=== PATIENT | male | born 1960 | race Caucasian/White ===

== ENCOUNTER 2017-01-27 11:57 | Emergency (ER) | payer MEDICAID ==
--- NOTE | 2017-01-27 12:08 | ER Document Report ---
ED Medical Screen (RME) - General Stated Complaint: TROUBLE SWALLOWING Mode of Arrival: Ambulatory Information source: Patient Notes: PT presents to the ED with c/o trouble swallowing for 3 days. Not able to eat/ drink for past 3 days. Hx of esophageal cancer, on chemo now. Radiation 3 months ago. Reports when he tries to swallow it gets stuck in his throat and has pain. Denies f//v. Reports throat feels like it is closing up when he drinks/eats. No problems now at rest. I have greeted and performed a rapid initial assessment of this patient. A comprehensive ED assessment and evaluation of the patient, analysis of test results and completion of the medical decision making process will be conducted by additional ED providers. TRAVEL OUTSIDE OF THE [place] IN LAST 30 DAYS: No - Related Data Allergies/Adverse Reactions: No Known Allergies Allergy (Verified 01/27/17 12:06) Past Medical History GI Medical History: Reports: Hx Gastroesophageal Reflux Disease - Immunizations Hx Diphtheria, Pertussis, Tetanus Vaccination: No
[2017-01-27 12:34] LABS: ABSOLUTE MONOCYTES (AUTO) 0.9 10^3/uL (0.1-1.4); ABSOLUTE NEUT (AUTO) 4.1 10^3/uL (1.7-8.2); BASOPHILS % (AUTO) 0.8 % (0-2); EOSINOPHILS % (AUTO) 0.7 % (0-6); HEMOGLOBIN 11.2 g/dL (13.5-17.0); HGB HCT DIFFERENCE 0.6; LYMPHOCYTES % (AUTO) 16.5 % (13-45); MEAN CORPUSCULAR HEMOGLOBIN 35.6 pg (27.0-33.4); MEAN CORPUSCULAR HGB CONC 33.9 g/dL (32.0-36.0); MEAN CORPUSCULAR VOLUME 105 fl (80-97); MONOCYTES % (AUTO) 14.3 % (3-13); RED BLOOD COUNT 3.14 10^6/uL (4.35-5.55); RED CELL DISTRIBUTION WIDTH 18.5 % (11.5-14.0); SEGMENTED NEUTROPHILS % (AUTO) 67.7 % (42-78); WHITE BLOOD COUNT 6.1 10^3/uL (4.0-10.5)
[2017-01-27 12:39] LABS: APPEARANCE,URINE CLEAR; BILIRUBIN,URINE NEGATIVE (NEGATIVE); GLUCOSE, URINE NEGATIVE (NEGATIVE); KETONES,URINE NEGATIVE (NEGATIVE); LEUKOCYTE ESTERASE,URINE NEGATIVE (NEGATIVE); NITRITE,URINE NEGATIVE (NEGATIVE); PROTEIN,URINE NEGATIVE (NEGATIVE); URINE SPECIFIC GRAVITY 1.016; UROBILINOGEN,URINE NEGATIVE mg/dL (<2.0)
[2017-01-27 12:49] LABS: ALANINE AMINOTRANSFERASE 29 U/L (21-72); ALBUMIN 3.8 g/dL (3.5-5.0); ALKALINE PHOSPHATASE 97 U/L (38-126); ANION GAP 13 (5-19); ASPARTATE AMINO TRANSFERASE 18 U/L (17-59); BILIRUBIN,TOTAL 0.9 mg/dL (0.2-1.3); BLOOD UREA NITROGEN 9 mg/dL (7-20); CALCIUM 9.6 mg/dL (8.4-10.2); CARBON DIOXIDE 25 mmol/L (22-30); CHLORIDE 103 mmol/L (98-107); CREATININE RESULT 0.48 mg/dL (0.52-1.25); GLUCOSE 89 mg/dL (75-110); POTASSIUM 3.6 mmol/L (3.6-5.0); SODIUM 141.3 mmol/L (137-145); TOTAL PROTEIN 6.8 g/dL (6.3-8.2)
--- NOTE | 2017-01-27 16:22 | ER Document Report ---
ED GI/ - General Chief Complaint: Difficulty Swallowing Stated Complaint: TROUBLE SWALLOWING Mode of Arrival: Ambulatory Notes: The patient is a 56-year-old male, past medical history esophageal cancer ( finished radiation, now on weekly Chemo), presents with 3 days of increasing pain when he swallows. The pain is worse with solids but is slightly present when he swallows liquids. He denies nausea, vomiting, foreign body sensation, throat swelling, rash, fevers or headache. TRAVEL OUTSIDE OF THE [place] IN LAST 30 DAYS: No - Related Data Allergies/Adverse Reactions: No Known Allergies Allergy (Verified 01/27/17 12:06) Past Medical History - General Information source: Patient - Social History Smoking Status: Current Every Day Smoker Chew tobacco use (# tins/day): No Frequency of alcohol use: None Drug Abuse: None Family History: None Patient has suicidal ideation: No Patient has homicidal ideation: No Renal/ Medical History: Denies: Hx Peritoneal Dialysis GI Medical History: Reports: Hx Gastroesophageal Reflux Disease - Immunizations Hx Diphtheria, Pertussis, Tetanus Vaccination: No Review of Systems - Review of Systems Notes: REVIEW OF SYSTEMS: CONSTITUTIONAL: -fevers, -chills EENT: -eye pain, +difficulty swallowing, -nasal congestion CARDIOVASCULAR: -chest pain, -syncope. RESPIRATORY: -cough, -SOB GASTROINTESTINAL: -abdominal pain, -nausea, -vomiting, -diarrhea GENITOURINARY: -dysuria, -hematuria MUSCULOSKELETAL: -back pain, -neck pain SKIN: -rash or skin lesions. HEMATOLOGIC: -easy bruising or bleeding. LYMPHATIC: -swollen, enlarged glands. NEUROLOGICAL: -altered mental status or loss of consciousness, -headache, - neurologic symptoms PSYCHIATRIC: -anxiety, -depression. ALL OTHER SYSTEMS REVIEWED AND NEGATIVE. Physical Exam - Vital signs Vitals: Temp Pulse Resp BP Pulse Ox 98.1 F 102 H 18 106/75 97 01/27/17 12:03 01/27/17 12:03 01/27/17 12:03 01/27/17 12:03 01/27/17 12:03 - Notes Notes: PHYSICAL EXAMINATION: GENERAL: No acute distress. HEAD: Atraumatic, normocephalic. EYES: Pupils equal round and reactive to light, extraocular movements intact, sclera anicteric, conjunctiva are normal. ENT: nares patent, oropharynx clear without exudates. Moist mucous membranes. NECK: No stridor. Normal range of motion, supple without lymphadenopathy LUNGS: Breath sounds clear to auscultation bilaterally and equal. No wheezes rales or rhonchi. HEART: Regular rate and rhythm without murmurs ABDOMEN: Soft, nontender, normoactive bowel sounds. No guarding, no rebound. No masses appreciated. EXTREMITIES: Normal range of motion, no pitting or edema. No cyanosis. NEUROLOGICAL: Cranial nerves grossly intact. Normal speech, normal gait. Normal sensory, motor, and reflex exams. PSYCH: Normal mood, normal affect. SKIN: Warm, Dry, normal turgor, no rashes or lesions noted. Course - Re-evaluation Re-evalutation: 01/27/17 16:28 Patient protecting his airway and able to swallow fluids. Labs and urine do not show that he is dehydrated. Spoke to Dr. Perez (his Oncologist) and recommends treating for Hortensia esophagitis. Also recommends a fentanyl patch to help out with the pain during swallowing and she will see him in his office in 2 days to schedule scans and EGD. Patient and are comfortable with plan. Given return precautions and he understands. - Vital Signs Vital signs: Temp Pulse Resp BP Pulse Ox 99.1 F 97 18 104/72 97 01/27/17 16:49 01/27/17 16:49 01/27/17 16:49 01/27/17 16:49 01/27/17 16:49 - Laboratory Result Diagrams: 01/27/17 12:20 01/27/17 12:20 Laboratory results interpreted by me: 01/27/17 01/27/17 12:20 12:20 RBC 3.14 L Hgb 11.2 L Hct 33.0 L MCV 105 H MCH 35.6 H RDW 18.5 H Plt Count 147 L Monocytes % 14.3 H Creatinine 0.48 L Discharge - Discharge Clinical Impression: Odynophagia Condition: Stable Disposition: HOME, SELF-CARE Additional Instructions: Take the Diflucan as prescribed. Use the fentanyl patch and follow-up with your oncologist as scheduled on Sunday. Make sure you're drinking plenty of fluids. Return to the ER if you are unable to drink. Esophagitis Your evaluation has resulted in a diagnosis of esophagitis. This is an inflammation of the lower esophagus due to stomach acid. It causes symptoms such as chest pain, heartburn, or food "sticking." This is common in persons with a hiatal hernia. Certain foods, alcohol, and aspirin contribute to esophagitis. Treatment depends on the severity. Usually, antacids or acid-suppressing medicines are used. The physician will often prescribe membrane-protective drugs (such as Carafate). Some patients benefit from medication that tightens the valve at the top of the stomach (such as Reglan). Avoid alcohol, aspirin, caffeine, tobacco, and foods that cause heartburn ( such as chocolate). Elevate the head of your bed about four inches. Call the doctor if you develop severe chest pain, inability to swallow fluids, fever, or worsening symptoms. Prescriptions: Fentanyl 1 each TD Q72H #1 patch.[id number] Fluconazole [Diflucan 40 mg/ml Susp] 100 mg PO DAILY 14 Days Referrals: ROSANNA PEREZ MD [Primary Care Provider] - Follow up as needed
[2017-01-27 16:50] VITALS: BP 104/72
== END 2017-01-27 16:49 | disposition home or self-care (01) ==
LOC: ER 11:57
DX: R13.10 Dysphagia, unspecified (principal); C15.9 Malignant neoplasm of esophagus, unspecified; F17.200 Nicotine dependence, unspecified, uncomplicated; Z79.899 Other long term (current) drug therapy
CPT/HCPCS: 36415; 80053; 81001; 85025; 99284

== ENCOUNTER → 2017-01-31 | Outpatient (CLI) | payer MEDICAID | LOC: RAD 08:36 | PROVIDERS: ATTEND Internal Medicine Medical Oncology | DX: C15.5 Malignant neoplasm of lower third of esophagus (principal); K74.60 Unspecified cirrhosis of liver | CPT/HCPCS: 71260; 74160 ==

== ENCOUNTER 2017-08-02 08:34 | Emergency (ER) | payer MEDICAID ==
[2017-08-02] MEDS ORDERED: NORMAL SALINE 1000 ML 1,000 ML IV ONE ×2 (09:20→11:11)
--- NOTE | 2017-08-02 09:22 | ER Document Report ---
ED Medical Screen (RME) - General Chief Complaint: Abdominal Pain Stated Complaint: ABDOMINAL PAIN Time Seen by Provider: 08/02/17 09:19 Mode of Arrival: Wheelchair Information source: Patient TRAVEL OUTSIDE OF THE [place] IN LAST 30 DAYS: No - HPI Patient complains to provider of: abd pain Onset: Other - pt. sent over from oncology outpt. as they are concerned with possible bowel blockage. Pt. states last BM 3 days ago - Related Data Allergies/Adverse Reactions: No Known Allergies Allergy (Verified 08/02/17 08:39) Past Medical History - Social History Chew tobacco use (# tins/day): No Frequency of alcohol use: None Drug Abuse: None Renal/ Medical History: Denies: Hx Peritoneal Dialysis GI Medical History: Reports: Hx Gastroesophageal Reflux Disease - Immunizations Hx Diphtheria, Pertussis, Tetanus Vaccination: No Physical Exam - Vital signs Vitals: Temp Pulse Resp BP Pulse Ox 97.9 F 120 H 20 102/70 97 08/02/17 08:37 08/02/17 08:37 08/02/17 08:37 08/02/17 08:37 08/02/17 08:37 Course - Vital Signs Vital signs: Temp Pulse Resp BP Pulse Ox 97.9 F 120 H 20 102/70 97 08/02/17 08:37 08/02/17 08:37 08/02/17 08:37 08/02/17 08:37 08/02/17 08:37
--- NOTE | 2017-08-02 09:35 | ER Document Report ---
ED GI/ - General Chief Complaint: Abdominal Pain Stated Complaint: ABDOMINAL PAIN Time Seen by Provider: 08/02/17 09:19 Mode of Arrival: Wheelchair Notes: Patient is a 57-year-old male who presents emergency department complaining of abdominal pain for the past day and a half. Patient states that he was fine up until yesterday when he had diffuse abdominal pain with associated bloating, nausea and hiccups. Patient states that he started throwing up last evening he has not been able to tolerate anything p.o. States his last bowel movement was 3-1/2 days ago. Patient denies any diarrhea. Denies any hematemesis. Past medical history significant for esophageal cancer stage III. Patient [facility] was not completed due to concerns for metastatic disease involving the left pleura and diaphragm. Patient has since been undergoing chemo with Dr. Quesada in [place]. Last PET scan was in March of this year and has not had a repeat imaging since his procedure. Otherwise denies any headache, shortness of breath, chest pain, difficulty breathing. Past medical history significant for cirrhosis secondary to history of alcohol abuse, esophageal cancer. Otherwise healthy male. Past surgical history significant for ex lap and PEG tube placement of April 20 of this year Social history significant for current tobacco user, history of alcohol abuse. TRAVEL OUTSIDE OF THE [place] IN LAST 30 DAYS: No - Related Data Allergies/Adverse Reactions: No Known Allergies Allergy (Verified 08/02/17 08:39) Past Medical History - General Information source: Patient - Social History Smoking Status: Current Every Day Smoker Chew tobacco use (# tins/day): No Frequency of alcohol use: None Drug Abuse: None Family History: None Renal/ Medical History: Denies: Hx Peritoneal Dialysis GI Medical History: Reports: Hx Gastroesophageal Reflux Disease - Immunizations Hx Diphtheria, Pertussis, Tetanus Vaccination: No Review of Systems - Review of Systems Notes: REVIEW OF SYSTEMS: CONSTITUTIONAL : Denies fever, chills, or sweats. Denies recent illness. EENT: Denies eye, ear, throat, or mouth pain or symptoms. Denies nasal or sinus congestion or discharge. Denies throat, tongue, or mouth swelling or difficulty swallowing. CARDIOVASCULAR: Denies chest pain. Denies palpitations or racing or irregular heart beat. Denies ankle edema. RESPIRATORY: Denies cough, cold, or chest congestion. Denies shortness of breath, difficulty breathing, or wheezing. GASTROINTESTINAL: See HPI GENITOURINARY: Denies difficulty urinating, painful urination, burning, frequency, blood in urine, or discharge. FEMALE GENITOURINARY: Denies vaginal bleeding, heavy or abnormal periods, irregular periods. Denies vaginal discharge or odor. MUSCULOSKELETAL: Denies any muscle spasms, difficulty walking, extremity pain SKIN: Denies rash, lesions or sores. HEMATOLOGIC : Denies easy bruising or bleeding. LYMPHATIC: Denies swollen, enlarged glands. NEUROLOGICAL: Denies confusion or altered mental status. Denies passing out or loss of consciousness. Denies dizziness or lightheadedness. Denies headache. Denies weakness or paralysis or loss of use of either side. Denies problems with gait or speech. Denies sensory loss, numbness, or tingling. Denies seizures. PSYCHIATRIC: Denies anxiety or stress. Denies depression, suicidal ideation, or homicidal ideation. ALL OTHER SYSTEMS REVIEWED AND NEGATIVE. Dictation was performed using [employer] voice recognition software Physical Exam - Vital signs Vitals: Temp Pulse Resp BP Pulse Ox 97.9 F 120 H 20 102/70 97 08/02/17 08:37 08/02/17 08:37 08/02/17 08:37 08/02/17 08:37 08/02/17 08:37 - Notes Notes: PHYSICAL EXAM GENERAL: Alert, interacts well. Thin, cachectic male HEAD: Normocephalic, atraumatic. EYES: Pupils equal, round, and reactive to light. Extraocular movements intact. ENT: Oral mucosa moist, tongue midline. NECK: Full range of motion. Supple. Trachea midline. LUNGS: Clear to auscultation bilaterally, no wheezes, rales, or rhonchi. No respiratory distress. HEART: Regular rate and rhythm. No murmurs, gallops, or rubs. ABDOMEN: Soft, mildly distended, moderately tender in epigastric area. Tympanic to percussion. no guarding, rebound, or rigidity.. Bowel sounds present in all 4 quadrants. EXTREMITIES: Moves all 4 extremities spontaneously. No edema, radial and dorsalis pedis pulses 2/4 bilaterally. No cyanosis. NEUROLOGICAL: Alert and oriented x4. Normal speech. PSYCH: Normal affect, normal mood. SKIN: Warm, dry, normal turgor. No rashes or lesions noted. Course - Re-evaluation Re-evalutation: 08/02/17 09:30 Patient is a 57-year-old male who is hemodynamically stable, no acute distress afebrile. Workup in triage conducted to evaluate for small bowel obstruction. Concern for small bowel obstruction. 08/02/17 10:45 No evidence of anemia or leukocytosis noted on CBC. Chemistry panel stable given patient's underlying malignancy and history of cirrhosis. No evidence of renal failure. X-ray of the abdomen shows concern for small bowel obstruction. Per surgeon Dr. Alex's recommendation requesting a CT of the abdomen and pelvis. 08/02/17 13:00 CT abdomen and pelvis reveals concern for diffuse metastatic disease with a new large pericardial effusion as well as ileus. Patients PEG tube was hooked up to wall suction and approximately 600 cc of gastric contents were drained. Patient states that his symptoms have improved. Given findings of CT transfers been initiated given that patient is requesting treatment for his pericardial effusion and ileus. Discussion With Dr. Dipak Rojas [facility]. 08/02/17 13:39 Accepted to [facility] under Dr. Lisa Easley, to do ED to ED transfer, accepting physician pending 08/02/17 15:00 Patient has been accepted by ED attending Dr. Chung for [facility] ED transport. Patient has remained hemodynamically stable with systolics of 106 over 60s. Has been appropriately medicated for nausea and pain. At this time patient is resting comfortably. 08/02/17 15:44 Transport has arrived for patient. Patient is hemodynamically stable And ready for transport - Vital Signs Vital signs: Temp Pulse Resp BP Pulse Ox 97.9 F 120 H 24 H 106/76 98 08/02/17 08:37 08/02/17 08:37 08/02/17 13:02 08/02/17 13:02 08/02/17 13:02 - Laboratory Result Diagrams: 08/02/17 09:45 08/02/17 09:45 Laboratory results interpreted by me: 08/02/17 08/02/17 08/02/17 09:30 09:45 09:45 RBC 3.31 L Hgb 10.2 L Hct 30.3 L RDW 21.9 H Seg Neutrophils % 90.1 H Lymphocytes % 5.8 L Absolute Neutrophils 8.7 H Sodium 135.2 L Chloride 97 L BUN 30 H Glucose 133 H Direct Bilirubin 0.5 H ALT 16 L Alkaline Phosphatase 156 H Lipase < 10.0 L Urine Protein 30 H Urine Ketones TRACE H Urine Bilirubin SMALL H Urine Urobilinogen 2.0 H Urine Ascorbic Acid 20 H - Diagnostic Test Radiology reviewed: Image reviewed, Reports reviewed - EKG Interpretation by Me EKG shows normal: Sinus rhythm Rate: Tachycardia Rhythm: NSR When compared to previous EKG there are: No significant change Discharge - Discharge Clinical Impression: Pericardial effusion, Ileus Esophageal cancer Qualifiers: Malignant neoplasm of esophagus location: unspecified location Qualified Code(s ): C15.9 - Malignant neoplasm of esophagus, unspecified Condition: Stable Disposition: [facility]
[2017-08-02 09:50] LABS: APPEARANCE,URINE SLIGHTLY-CLOUDY; BILIRUBIN,URINE SMALL (NEGATIVE); GLUCOSE, URINE NEGATIVE (NEGATIVE); KETONES,URINE TRACE mg/dL (NEGATIVE); LEUKOCYTE ESTERASE,URINE NEGATIVE (NEGATIVE); NITRITE,URINE NEGATIVE (NEGATIVE); PROTEIN,URINE 30 mg/dL (NEGATIVE); URINE SPECIFIC GRAVITY 1.035
[2017-08-02 10:05] LABS: ABSOLUTE LYMPHOCYTES (AUTO) 0.6 10^3/uL (0.5-4.7); ABSOLUTE MONOCYTES (AUTO) 0.4 10^3/uL (0.1-1.4); ABSOLUTE NEUT (AUTO) 8.7 10^3/uL (1.7-8.2); BASOPHILS % (AUTO) 0.1 % (0-2); HEMATOCRIT 30.3 % (37.9-51.0); HEMOGLOBIN 10.2 g/dL (13.5-17.0); HGB HCT DIFFERENCE 0.3; LYMPHOCYTES % (AUTO) 5.8 % (13-45); MEAN CORPUSCULAR HEMOGLOBIN 30.7 pg (27.0-33.4); MEAN CORPUSCULAR HGB CONC 33.6 g/dL (32.0-36.0); MEAN CORPUSCULAR VOLUME 92 fl (80-97); RED BLOOD COUNT 3.31 10^6/uL (4.35-5.55); RED CELL DISTRIBUTION WIDTH 21.9 % (11.5-14.0); SEGMENTED NEUTROPHILS % (AUTO) 90.1 % (42-78); WHITE BLOOD COUNT 9.7 10^3/uL (4.0-10.5)
--- NOTE | 2017-08-02 10:21 | RADIOLOGY REPORT (SQ) ---
EXAM DESCRIPTION: ACUTE ABDOMEN SERIES COMPLETED DATE/TIME: 08/02/2017 10:06 am REASON FOR STUDY: abd pain COMPARISON: None. NUMBER OF VIEWS: Three views. TECHNIQUE: Frontal chest, supine abdomen and upright/decubitus abdomen radiographic images acquired. LIMITATIONS: None. FINDINGS: CHEST: Mild increased density in the left retrocardiac region consistent with atelectasis or pneumonia. Remainder lungs are clear. Left-sided PICC catheter with tip in the superior vena cav a. FREE AIR: None. No abnormal gas collections. BOWEL GAS PATTERN: Multiple dilated gas-filled loops small bowel with associated air-fluid levels. C olon is nondistended containing fecal material. Findings consistent with small bowel obstruction. CALCIFICATIONS: No suspicious calcifications. HARDWARE: Gastrostomy tube. SOFT TISSUES: No gross mass or suggestion of organomegaly. BONES: No acute fracture. No worrisome bone lesions. OTHER: No other significant finding. IMPRESSION: 1. Findings consistent with small bowel obstruction. 2. Mild left basilar atelectasis or pneumonia. TECHNICAL DOCUMENTATION: JOB ID: [id number] [employer]- All Rights Reserved
[2017-08-02] MEDS ORDERED: HYDROMORPHONE HCL INJ/PF 2 MG/ML AMPULE IV ONE ×4 (10:30→16:05)
[2017-08-02] MEDS ORDERED: METOCLOPRAMIDE HCL INJ/PF 10 MG/2 ML SDV IV ONE (10:30)
[2017-08-02 10:52] LABS: ALANINE AMINOTRANSFERASE 16 U/L (21-72); ALBUMIN 3.5 g/dL (3.5-5.0); ALKALINE PHOSPHATASE 156 U/L (38-126); ANION GAP 11 (5-19); ASPARTATE AMINO TRANSFERASE 28 U/L (17-59); BILIRUBIN,DIRECT 0.5 mg/dL (0.0-0.4); BILIRUBIN,TOTAL 0.8 mg/dL (0.2-1.3); BLOOD UREA NITROGEN 30 mg/dL (7-20); CALCIUM 9.4 mg/dL (8.4-10.2); CARBON DIOXIDE 27 mmol/L (22-30); CHLORIDE 97 mmol/L (98-107); CREATININE RESULT 0.54 mg/dL (0.52-1.25); GLUCOSE 133 mg/dL (75-110); POTASSIUM 3.7 mmol/L (3.6-5.0); SODIUM 135.2 mmol/L (137-145); TOTAL PROTEIN 6.8 g/dL (6.3-8.2)
[2017-08-02 10:55] LABS: LIPASE < 10.0 U/L (23-300)
--- NOTE | 2017-08-02 12:59 | RADIOLOGY REPORT (SQ) ---
EXAM DESCRIPTION: CT ABD/PELVIS WITH IV ONLY COMPLETED DATE/TIME: 08/02/2017 12:07 pm REASON FOR STUDY: abdominal distension, tender, N/V, h/o eso Ca COMPARISON: CT chest abdomen and pelvis 01/31/2017 PET-CT 09/15/2016 CT abdomen pelvis 05/28/2016 TECHNIQUE: CT scan of the abdomen and pelvis performed using helical scanning technique with dynamic intravenous contrast injection. No oral contrast. Images reviewed with lung, soft tissue, and bone windows. Reconstructed coronal and sagittal MPR images reviewed. Delayed images for evaluation of the urinary system also acquired. All images stored on PACS. All CT scanners at this facility use dose modulation, iterative reconstruction, and/or weight based d osing when appropriate to reduce radiation dose to as low as reasonably achievable (ALARA). [facility]: Dose Right [facility]: CareDose [facility]: Dose Right [facility]: Teradose 4D [facility]: Parsimotion CONTRAST TYPE AND DOSE: contrast/concentration: Isovue 370.00 mg/ml; Total Contrast Delivered: 54.0 ml; Total Saline Delivered: 65.0 ml RENAL FUNCTION: Creatinine 0.54 RADIATION DOSE: Up-to-date CT equipment and radiation dose reduction techniques were employed. CTDIv ol: 5.3 - 6.2 mGy. DLP: 642 mGy-cm.. LIMITATIONS: None. FINDINGS: LOWER CHEST: There is distortion of anatomy at the GE junction. Patient has had an esopha geal cancer treated with radiation. On sagittal reconstruction image 52 and axial images 12 through 18, the true lumen of the [employer] esop hagus is difficult to follow. There is a 4 x 2 cm fluid collection with an air bubble present which could be the esophageal lumen or a contained perforation. Wall thickening at the gastric cardia and GE junction is present. There is cavitary consolidation in the adjacent left lower lobe, posterior medially. This has decrea sed in size compared to CT chest 01/31/2017, currently 4 x 2 cm in size (was 6 x 3 cm 01/31/2017). It is unclear whether this cyst cavitary pneumonia or extension of tumor from the esophagus into the lef t pleural space. There is a trace left pleural effusion. Since the prior CT chest 01/31/2017 the patient has developed a moderate size pericardial effusion. T here is also a 2 x 1.7 cm nodule along the inferior left lower hilum, incompletely included in the fi eld of view, worrisome for metastatic disease. LIVER: Interval development of small liver nodules worrisome for metastatic disease as follows: 9 mm sub- diaphragmatic surface right lobe liver image 10 8 mm left lobe liver subdiaphragmatic surface image 14 SPLEEN: Normal size. No focal lesions. PANCREAS: Diffusely small, calcified from chronic pancreatitis. Currently, no peripancreatic fluid c ollections or inflammation. GALLBLADDER: No stones. Phrygian cap. ADRENAL GLANDS: Interval development of bilateral adrenal nodules worrisome for metastatic disease. A right adrenal nodule 2.1 x 1.8 cm, left adrenal nodule 1.6 x 1.2 cm. RIGHT KIDNEY AND URETER: No solid masses. No significant calcifications. No hydronephrosis or hyd roureter. LEFT KIDNEY AND URETER: No solid masses. No significant calcifications. No hydronephrosis or hydr oureter. AORTA AND VESSELS: No aneurysm. No dissection. Renal arteries, SMA, celiac without stenosis. RETROPERITONEUM: No retroperitoneal adenopathy, hemorrhage or masses. BOWEL AND PERITONEAL CAVITY: Patient has a gastrostomy tube with the tip in the stomach. The stomach and small bowel are distended with fluid. No discrete transition point is identified. Small bowel can be followed down to the ileocecal valve. There is moderate stool in the ascending colon. Remain felix of the colon is decompressed. Trace ascites. APPENDIX: Normal. PELVIS: No mass. No free fluid. Normal bladder. ABDOMINAL WALL: No masses. No hernias. BONES: No significant or acute findings. OTHER: There is a subcutaneous nodule in the right lateral chest wall at the upper edge of the field of view on axial image for worrisome for a soft tissue metastatic lesion measuring 2 x 1 cm in size. IMPRESSION: Probable ileus, with diffuse distention of stomach and small bowel, no transition point. Moderate stool in the ascending colon. Very abnormal GE junction, with a possible perforation and false lumen paralleling the distal esophag us Left lower hilar mass, pericardial effusion, abnormal lung parenchyma in the posteromedial left lung base, liver nodules, adrenal nodules, right lateral chest wall nodule all worrisome for new metastati c disease TECHNICAL DOCUMENTATION: JOB ID: [id number] Quality ID # [id number]: Final reports with documentation of one or more dose reduction techniques (e.g., Au tomated exposure control, adjustment of the mA and/or kV according to patient size, use of iterative reconstruction technique) 2010 [employer]- All Rights Reserved
[2017-08-02 15:42] VITALS: BP 99/69
[2017-08-02] MEDS ORDERED: ONDANSETRON HCL INJ/PF 4 MG/2 ML SDV IV ONE (16:05)
--- NOTE | 2017-08-02 20:12 | EKG REPORT ---
SEVERITY:- ABNORMAL ECG - SINUS TACHYCARDIA NONSPECIFIC T ABNORMALITIES, ANTERIOR LEADS : Confirmed by: Shilpi Olivo 02-Aug-2017 20:12:10
== END 2017-08-02 16:15 | disposition short-term general hospital (02) ==
LOC: ER 08:34
DX: I31.3 Pericardial effusion (noninflammatory) (principal); K56.7 Ileus, unspecified; C15.9 Malignant neoplasm of esophagus, unspecified; R10.9 Unspecified abdominal pain; R14.0 Abdominal distension (gaseous); R11.0 Nausea; R06.6 Hiccough; F17.210 Nicotine dependence, cigarettes, uncomplicated
CPT/HCPCS: 93005; 96376; 99285; 96361; 96374; 96375; 36415; 83690; 85025; 80053; 81001; 74022; 74177; 93010; J2765; J1170; J2405; J7030